=== PATIENT | female | born 1970 | race Two or more races ===

== ENCOUNTER 2017-05-12 05:44 | Day surgery (SDC) | payer OTHER ==
[2017-05-11 09:54] LABS: HCG UR LOT HCG7030192
[2017-05-11 10:14] LABS: ASPARTATE AMINO TRANSFERASE 20 U/L (15-37); BLOOD UREA NITROGEN 11 mg/dL (7-18)
[2017-05-11 10:50] LABS: HCG UR OBC PASS
[~2017-05-12] VITALS: Ht 157.5 cm; Wt 67.9 kg
[~2017-05-12 05:44] MED LIST: HYDR25TA6 PO; LEVO50TA5 PO; NORE0.3513 PO
[2017-05-12] MEDS ORDERED: LACTATED RINGERS 1,000 ML IV SCH (06:43)
[2017-05-12 06:44] VITALS: BP 142/98
[2017-05-12] MEDS ORDERED: MIDAZOLAM 1 MG/ML, 2ML ONE ×2 (07:05→07:40)
[2017-05-12] MEDS ORDERED: FENTANYL PF 100 MCG/2ML ONE ×3 (07:05→07:40)
[2017-05-12] MEDS ORDERED: EPINEPHRINE 1 MG/ML, 1ML ONE (07:13)
[2017-05-12] MEDS ORDERED: LIDOCAINE/PF 1%, 30ML ONE (07:13)
[2017-05-12] MEDS ORDERED: LIDOCAINE/PF 1%, 30ML INFIL ONE (07:31)
[2017-05-12] MEDS ORDERED: PROPOFOL 10 MG/ML, 20ML ONE (07:40)
[2017-05-12] MEDS ORDERED: ONDANSETRON 2MG/ML, 2ML ONE (07:40)
[2017-05-12] MEDS ORDERED: ROCURONIUM 10 MG/ML,10ML ONE (07:40)
[2017-05-12] MEDS ORDERED: SUCCINYLCHOLINE 20 MG/ML, 10ML ONE (07:40)
[2017-05-12] MEDS ORDERED: NEOSTIGMINE 1 MG/ML, 10ML ONE (07:40)
[2017-05-12] MEDS ORDERED: DEXAMETHASONE 4 MG/ML, 1ML ONE (07:40)
[2017-05-12] MEDS ORDERED: CEFAZOLIN 1,000 MG ONE (07:40)
[2017-05-12] MEDS ORDERED: GLYCOPYRROLATE 0.2MG/1ML, 5ML ONE (07:40)
[2017-05-12] MEDS ORDERED: PROMETHAZINE 25 MG/ML, 1ML IV PRN (09:00)
[2017-05-12] MEDS ORDERED: MIDAZOLAM 1 MG/ML, 2ML IV PRN (09:00)
[2017-05-12] MEDS ORDERED: METOPROLOL 1 MG/ML, 5ML IV PRN (09:00)
[2017-05-12] MEDS ORDERED: MEPERIDINE/PF 25MG/0.5ML IVPush PRN (09:00)
[2017-05-12] MEDS ORDERED: HYDROmorphone 1 MG/ML, 1ML IV PRN (09:00)
[2017-05-12] MEDS ORDERED: hydrALAzine 20 MG/ML, 1ML IV PRN (09:00)
[2017-05-12] MEDS ORDERED: EPHEDRINE 50 MG/ML, 1ML IVPush PRN (09:00)
[2017-05-12] MEDS ORDERED: FENTANYL PF 100 MCG/2ML IV PRN (09:00)
[2017-05-12] MEDS ORDERED: KETOROLAC 30 MG/1 ML IV PRN (09:00)
[2017-05-12] MEDS ORDERED: ACETAMINOPHEN 325 MG TABLET PO PRN (09:00)
[2017-05-12] MEDS ORDERED: ONDANSETRON 2MG/ML, 2ML IVPush PRN (09:00)
[2017-05-12] MEDS ORDERED: ALBUTEROL SULFATE 2.5 MG/3 ML NPPB PRN (09:00)
[2017-05-12] MEDS ORDERED: DIAZEPAM 5 MG/ML, 2ML IVPush PRN (09:00)
[2017-05-12] MEDS ORDERED: HYDROcodone/APAP 7.5-325MG/15ML UDC PO PRN (09:00)
[2017-05-12] MEDS ORDERED: LABETALOL 5MG/ML, 20ML IV PRN (09:00)
[2017-05-12] MEDS ORDERED: OXYcodone 5 MG/5 ML ORAL.SOL UDC PO PRN (09:00)
== END 2017-05-12 10:33 ==
LOC: OUT 05:44
PROVIDERS: ATTEND Otolaryngology
DX: D10.39 Benign neoplasm of other parts of mouth (principal); I10 Essential (primary) hypertension; E03.9 Hypothyroidism, unspecified
CPT/HCPCS: 36415; 42120; 80053; 81025; 88305; J0171; J0330; J0690; J1100; J2250; J2405; J2704; J2710; J3010; J3490; J7120